=== PATIENT | female | born 1995 | race Caucasian/White ===

== ENCOUNTER 2020-10-15 20:08 | Emergency (ER) | payer SELFPAY ==
[~2020-10-15] VITALS: Ht 170.2 cm; Wt 54.4 kg
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
[2020-10-15] MEDS ORDERED: LORazepam Inj 2mg/ml 1ml ONE (21:50)
[2020-10-15] MEDS: LORazepam Inj 2mg/ml 1ml IM ONE (21:53)
[2020-10-15] MEDS: Haloperidol 5mg/ml Inj IM ONE (21:54)
[2020-10-15 22:52] LABS: BASOPHILS % (AUTO) 1.1 % (0.0-2.0); EOSINOPHILS % (AUTO) 0.1 % (0.0-3.0); HEMATOCRIT 38.2 % (37.0-47.0); LYMPHOCYTES % (AUTO) 18.5 % (20.0-45.0); MEAN CORPUSCULAR VOLUME 90 FL (80-99); MONOCYTES % (AUTO) 6.9 % (1.0-10.0); NEUTROPHILS % (AUTO) 73.4 % (45.0-75.0); PLATELET COUNT 323 K/UL (150-450); RED BLOOD COUNT 4.23 M/UL (4.20-5.40); RED CELL DISTRIBUTION WIDTH 12.8 % (11.6-14.8); WHITE BLOOD COUNT 10.4 K/UL (4.8-10.8)
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
[2020-10-15 22:56] VITALS: BP 124/76
[2020-10-15 22:59] LABS: APPEARANCE,URINE CLEAR; BILIRUBIN, URINE 1+ (NEGATIVE); GLUCOSE, URINE (UA) NEGATIVE (NEGATIVE); KETONES,URINE 2+ (NEGATIVE); LEUKOCYTE ESTERASE ,URINE 1+ (NEGATIVE); NITRITE,URINE NEGATIVE (NEGATIVE); PH,URINE 7 (4.5-8.0); PROTEIN,URINE 2+ (NEGATIVE); UROBILINOGEN,URINE 8 MG/DL (0.0-1.0)
[2020-10-15 23:03] LABS: COLOR,URINE YELLOW
[2020-10-15 23:03] LABS: ANION GAP 8 mmol/L (5-15); BLOOD UREA NITROGEN 14 mg/dL (7-18); CALCIUM 8.5 MG/DL (8.5-10.1); CARBON DIOXIDE 26 MMOL/L (21-32); CHLORIDE 108 MMOL/L (98-107); CREATININE 0.7 MG/DL (0.55-1.30); POTASSIUM 3.4 MMOL/L (3.5-5.1); SODIUM 142 MMOL/L (136-145)
[2020-10-15 23:15] LABS: ALANINE AMINOTRANSFERASE 52 U/L (12-78); ALBUMIN/GLOBULIN RATIO 1.2 (1.0-2.7); ALKALINE PHOSPHATASE 57 U/L (46-116); ASPARTATE AMINO TRANSFERASE 36 U/L (15-37); BILIRUBIN,TOTAL 0.8 MG/DL (0.2-1.0)
--- NOTE | 2020-10-15 23:36 | NUR ---
ED Nurse Note: Pt is calm, asleep and comfortable. Vitals are stable. We will keep monitoring the pt.
[2020-10-16 00:15] VITALS: BP 129/78
--- NOTE | 2020-10-16 01:26 | NUR ---
ED Nurse Note: pt is on the bed sleeping and calm. vitals are stable.
--- NOTE | 2020-10-16 02:22 | NUR ---
Marily called from [facility]-cannot accept patient due to no SS#. Advised to call back after 8am , they will have more resources.
[2020-10-16 02:36] VITALS: BP 126/69
[2020-10-16 03:00] VITALS: BP 129/65
--- NOTE | 2020-10-16 03:56 | NUR ---
ED Nurse Note: pt is still sleeping and vitals are stable. We will keep monitoring the pt.
[2020-10-16 05:14] VITALS: BP 132/69
--- NOTE | 2020-10-16 05:25 | NUR ---
ED Nurse Note: Pt is on the bed sleeping and vitals are stable. We will keep monitoring the pt.
--- NOTE | 2020-10-16 08:30 | NUR ---
ED Nurse Note: Pt seen sleeping in bed. Breathing even and unlabored. Safety and comfort provided. Will cont to monitor.
--- NOTE | 2020-10-16 15:30 | NUR ---
ED Nurse Note: PT. WAS ASSESSED BY DR. TELLO AND CLEARED [id number]
[2020-10-16 17:20] VITALS: BP 125/62
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
== END 2020-10-16 17:20 | disposition home or self-care (01) ==
LOC: EDBD 20:08 → EMR 20:52
DX: F15.129 Other stimulant abuse with intoxication, unspecified (principal); F19.10 Other psychoactive substance abuse, uncomplicated; F23 Brief psychotic disorder
CPT/HCPCS: 36415; 80053; 80307; 81003; 81025; 84443; 85025; 96360; 96372; 99284; G0480; J1630; U0002